=== PATIENT | male | born 2000 | race Caucasian/White ===

== ENCOUNTER 2023-04-05 02:58 | Emergency (ER) | payer MEDICAID ==
[2023-04-05] MEDS ORDERED: Acetaminophen/HYDROcodone 325-5 MG Tab PO ONE (02:59)
[2023-04-05] MEDS ORDERED: Amoxicillin 500 MG Cap PO ONE (02:59)
== END 2023-04-05 03:35 | disposition home or self-care (01) ==
LOC: FB.ED 02:58
DX: K04.7 Periapical abscess without sinus (principal)
CPT/HCPCS: 99282; A9270

== ENCOUNTER 2023-10-10 01:34 | Emergency (ER) | payer MEDICAID ==
[2023-10-10] MEDS ORDERED: Prochlorperazine 10 MG/2 ML SDV IVPUSH ONE (02:01)
[2023-10-10] MEDS ORDERED: Sodium Chloride 0.9% 1,000 ML IV ONE (02:01)
[2023-10-10] MEDS ORDERED: diphenhydrAMINE 50 MG/ML SDV IVPUSH ONE (02:01)
[2023-10-10] MEDS: Sodium Chloride 0.9% 10 ML Syringe FLUSH PRN ×2 (02:08→02:09)
[2023-10-10 02:18] LABS: BASOPHILS ABSOLUTE AUTO 0.1 x10-3/uL (0.0-0.3); BASOPHILS PERCENT AUTO 0.6 % (0.3-3.8); EOSINOPHILS ABSOLUTE AUTO 0.1 x10-3/uL (0.0-0.6); EOSINOPHILS PERCENT AUTO 0.9 % (0.1-6.8); HEMATOCRIT 42.6 % (38.3-50.1); HEMOGLOBIN 14.7 g/dL (12.9-17.7); LYMPHOCYTES ABSOLUTE AUTO 2.6 x10-3/uL (0.5-4.5); LYMPHOCYTES PERCENT AUTO 28.2 % (15.8-45.3); MEAN CORPUSCULAR HEMOGLOBIN 30.1 pg (27.0-33.3); MEAN CORPUSCULAR HGB CONC 34.5 g/dL (28.7-35.3); MEAN CORPUSCULAR VOLUME 87.2 fL (80.8-98.7); MEAN PLATELET VOLUME 7.7 fL (6.7-11.0); MONOCYTES ABSOLUTE AUTO 0.7 x10-3/uL (0.0-1.2); MONOCYTES PERCENT AUTO 7.3 % (5.5-15.2); NEUTROPHILS ABSOLUTE AUTO 5.7 x10-3/uL (1.7-6.9); PLATELET COUNT,PLT 327 x10(3)uL (117-477); RED BLOOD CELL COUNT 4.89 x10(6)uL (3.90-5.90); RED CELL DISTRIBUTION WIDTH 12.5 % (12.4-15.0); WHITE BLOOD CELL COUNT,WBC 9.1 x10-3/uL (3.2-10.1)
[2023-10-10 02:23] LABS: BLOOD UREA NITROGEN,BUN 12 mg/dL (7-18); CALCIUM 9.3 mg/dL (8.6-10.2); CARBON DIOXIDE,CO2 29 mmol/L (21-32); CHLORIDE,CL 103 mmol/L (100-110); ESTIMATED GFR 111 mL/min (>60); GLUCOSE RANDOM 89 mg/dL (80-116); POTASSIUM,K 3.3 mmol/L (3.5-5.3); SODIUM,NA 139 mmol/L (135-145)
[2023-10-10 02:28] LABS: A/G RATIO 1.2; ALANINE AMINOTRANSFERASE,ALT 29 U/L (12-36); ALBUMIN 4.3 g/dL (3.5-5.2); ALKALINE PHOSPHATASE 94 IU/L (56-112); ASPARTATE AMNIOTRANSFERASE,AST 19 IU/L (5-25); BILIRUBIN TOTAL 0.4 mg/dL (0.1-1.3); MAGNESIUM 1.8 mg/dL (1.8-2.5); PROTEIN TOTAL,TP 7.9 g/dL (6.0-8.0)
[2023-10-10 02:41] LABS: SEDIMENTATION RATE MANUAL 1 mm/hr (0-15)
== END 2023-10-10 05:17 | disposition home or self-care (01) ==
LOC: FB.ED 01:34
DX: G43.909 Migraine, unspecified, not intractable, without status migrainosus (principal); R20.0 Anesthesia of skin; F17.200 Nicotine dependence, unspecified, uncomplicated
CPT/HCPCS: 36415; 70450; 80053; 83735; 85025; 85651; 86140; 96361; 96374; 96375; 99284; J0780; J1200; J3490; J7030

== ENCOUNTER 2024-06-28 22:59 | Emergency (ER) | payer SELFPAY ==
[2024-06-28] MEDS ORDERED: Penicillin V Potassium 250 MG Tab PO ONE (23:00)
[2024-06-28] MEDS ORDERED: traMADol 50 MG Tab PO ONE (23:00)
== END 2024-06-28 23:18 | disposition home or self-care (01) ==
LOC: FB.ED 22:59
DX: K04.7 Periapical abscess without sinus (principal)
CPT/HCPCS: 99282; A9270; 99283